=== PATIENT | male | born 1990 | race Caucasian/White ===

== ENCOUNTER 2017-01-06 02:27 | Emergency (ER) | payer OTHER ==
[2017-01-06 03:53] LABS: AMPHETAMINE POS (NEG); BARBITURATES NEG (NEG); BENZODIAZEPINES NEG (NEG); COCAINE NEG (NEG); MARIJUANA NEG (NEG); OPIATES POS (NEG); TRICYCLIC ANTIDEPRESSANTS NEG (NEG); U METHADONE NEG (NEG)
== END 2017-01-06 07:00 | disposition home or self-care (01) ==
LOC: CED 02:27
PROVIDERS: Nurse Practitioner Family
DX: F11.129 Opioid abuse with intoxication, unspecified (principal); F15.129 Other stimulant abuse with intoxication, unspecified; F41.9 Anxiety disorder, unspecified; B19.20 Unspecified viral hepatitis C without hepatic coma; F17.210 Nicotine dependence, cigarettes, uncomplicated
CPT/HCPCS: 80307; 99283